=== PATIENT | female | born 1950 | race Caucasian/White ===

== ENCOUNTER → 2016-03-24 | Day surgery (SDC) | payer OTHER ==
[~2016-03-24] MED LIST: LIDOCAINE HCL 1% 30 ML VIAL ONE; SODIUM BICARBONATE 8.4% INJ 50 ML ONE
[2016-03-24 14:42] VITALS: BP 149/91; PULSE 74; RESP 14; TEMP 98.8; O2SAT 96
--- NOTE | 2016-03-24 16:29 | RADRPT ---
EXAM DATE/TIME: 03/24/2016 14:47 [facility] COMPARISON: No previous studies available for comparison. INDICATIONS : Fluid collection. MEDICAL HISTORY : Carcinoma, breast. SURGICAL HISTORY : Mastectomy, bilateral. Breast implants. ENCOUNTER: Initial ACUITY: 1 month PAIN SCORE: 3/10 LOCATION: Left breast. FLUID: Total volume of 40 cc of clear, red fluid was removed. Fluid was sent to lab for ordered studies. Post procedure scanning reveals no hematoma or other complication. TECHNIQUE: 1. Ultrasound guidance for needle aspiration. 2. Aspiration. The risks, benefits, and alternatives to ultrasound guided aspiration were explained to the patient i n detail including the risk of bleeding and infection. Written and verbal informed consent was obtai alfonzo. With the patient on the ultrasound table, ultrasound imaging was used to select the most appropriate approach for aspiration. Under ultrasound guidance an 18 gauge he was placed into the fluid and approximately 40 cc of dark fl uid were removed. Significant amount of non-liquefied hematoma remains. CONCLUSION: Uncomplicated ultrasound guided aspiration. Cesar Barnes MD FACR on March 24, 2016 at 16:22 Board Certified Radiologist. This report was verified electronically.
== END | disposition home or self-care (01) ==
LOC: HRAD 14:12
PROVIDERS: ATTEND Plastic Surgery
DX: N64.89 Other specified disorders of breast (principal); Z90.13 Acquired absence of bilateral breasts and nipples; Z85.3 Personal history of malignant neoplasm of breast
CPT/HCPCS: 19000; 76942; 87070; 87205

== ENCOUNTER → 2016-03-28 | Day surgery (SDC) | payer OTHER ==
--- NOTE | 2016-03-29 08:34 | RADRPT ---
EXAM DATE/TIME: 03/28/2016 12:24 [facility] COMPARISON: No previous studies available for comparison. FINDINGS/ CONCLUSION: Mrs. Lowe returns today for a follow up exam. Visually the left breast looks substantially improved. Very small amount of fluid now remains in the left breast. This was not aspirated. She was given an appointment to return to see me after her plastic surgery appointment 17. Cesar Barnes MD FACR on March 29, 2016 at 8:22 Board Certified Radiologist. This report was verified electronically.
== END | disposition home or self-care (01) ==
LOC: HRAD 11:39
PROVIDERS: ATTEND Plastic Surgery
DX: Z09 Encounter for follow-up examination after completed treatment for conditions other than malignant neoplasm (principal); N64.89 Other specified disorders of breast
CPT/HCPCS: 76642